=== PATIENT | male | born 1935 | race Caucasian/White ===

== ENCOUNTER 2016-12-11 09:31 | Emergency (ER) | payer BC, MEDICARE ==
[~2016-12-11] VITALS: Ht 177.8 cm; Wt 98.2 kg
[2016-12-11 09:33] VITALS: BP 175/84; PULSE 78; RESP 15; TEMP 98; O2SAT 98
[2016-12-11 09:45] VITALS: BP 157/77; PULSE 61; RESP 16; TEMP 97.5; O2SAT 95
[2016-12-11] MEDS ORDERED: LIDOCAINE 1%/EPINEPHrine 1:100,000 SOLN 20 ML VIAL INFIL ONE (10:00)
[2016-12-11] MEDS ORDERED: NAPR220T95 PO (10:04)
[2016-12-11] MEDS ORDERED: HYDR25TA5 PO (10:04)
[2016-12-11] MEDS ORDERED: WARF-21 PO (10:04)
[2016-12-11] MEDS ORDERED: PANT40TA3 PO (10:04)
[2016-12-11] MEDS ORDERED: METO25TA6 PO (10:04)
[2016-12-11] MEDS ORDERED: AMLO5CAP3 PO (10:04)
[2016-12-11] MEDS ORDERED: WARF-23 PO (10:04)
[2016-12-11] MEDS ORDERED: FLEC1TAB8 PO (10:04)
--- NOTE | 2016-12-11 10:18 | PD ---
HPI . Facial laceration Chief Complaint: Fall Time Seen by Provider: 09:45 Travel History International Travel<30 days: No Contact w/Intl Traveler<30days: No Traveled to known affect area: No History of Present Illness HPI This patient tripped and fell suffering a laceration on the right side of the face and abrasions on the right forearm and right knee. He presents stating that he feels like he needs some stitches in the facial laceration. He states that he does not hurt. He denies any loss of consciousness. He denies blurred vision. He denies neck pain. He is on Coumadin. PFSH Past Medical History Hx Anticoagulant Therapy: Yes (WARFARIN ) Atrial Fibrillation: Yes (CARDIOVERSION ) Cardiac Catheterization: Yes Cardiovascular Problems: Yes (A-FIB, HTN) Hypertension: Yes Integumentary: Yes (BASAL CELL CARCINOMA REMOVED) Tetanus Vaccination: < 5 Years Influenza Vaccination: Yes Past Surgical History Eye Surgery: Yes (CATARACT SURGERY) Genitourinary Surgery: Yes (VASECTOMY) Other Surgery: Yes (BASAL CELL CARCINOMA REMOVED ) Social History Alcohol Use: Yes (DAILY ) Tobacco Use: No (QUIT 50 YEARS AGO ) Substance Use: No Allergies-Medications (Allergen,Severity, Reaction): Coded Allergies: No Known Allergies (Verified , 12/11/16) Reported Meds & Prescriptions Reported Meds & Active Scripts Active Reported Flecainide (Flecainide Acetate) 50 Mg Tab 50 Mg PO BID Warfarin 7.5 Mg Tab 7.5 Mg PO DAILY Warfarin 5 Mg Tab 5 Mg PO DAILY Aleve (Naproxen Sodium) 220 Mg Tab 220 Mg PO BID PRN Pantoprazole (Pantoprazole Sodium) 40 Mg Tab 40 Mg PO DAILY Hydrochlorothiazide 25 Mg Tab 0.5 Tab PO DAILY Amlodipine-Benazepril 5-20 Mg Cap 1 Cap PO DAILY Metoprolol Succinate ER 24 HR (Metoprolol Succinate) 25 Mg Tab 12.5 Mg PO DAILY Review of Systems Except as stated in HPI: all other systems reviewed are Neg Eyes: No: Diploplia, Blurred Vision HENT: No: Headaches Cardiovascular: No: Chest Pain or Discomfort Respiratory: No: Shortness of Breath Gastrointestinal: No: Nausea, Vomiting, Diarrhea Musculoskeletal: No: Myalgias, Arthralgias Skin: Positive Other (abrasions and laceration) Neurologic: No: Dizziness, Syncope Physical Exam Narrative GENERAL: Patient presents as ambulatory in no acute distress. SKIN: Warm and dry. Jagged 2 cm laceration to the right of the right eye. Abrasions on the right forearm and the right knee. HEAD: Normocephalic. Except for the facial laceration, no other injuries to the head. EYES: Pupils equal and round. Extraocular movements are intact. ENT: No nasal bleeding or discharge. Mucous membranes pink and moist. NECK: Trachea midline. Neck is nontender with full range of motion. CARDIOVASCULAR: Regular rate and rhythm. Heart sounds are normal. RESPIRATORY: No accessory muscle use. Lungs are clear with full air movement throughout. GASTROINTESTINAL: Abdomen soft, non-tender, nondistended. MUSCULOSKELETAL: No obvious deformities. No edema. He is able to move all 4 extremities equally. NEUROLOGICAL: Awake and alert. No obvious cranial nerve deficits. Motor grossly within normal limits. Normal speech. PSYCHIATRIC: Appropriate mood and affect; insight and judgment normal. Data Data Last Documented VS Vital Signs Date Time Temp Pulse Resp B/P Pulse Ox O2 Delivery O2 Flow Rate FiO2 12/11/16 09:45 62 16 95 Room Air 12/11/16 09:45 97.5 157/77 Orders Lidocai-Epi 1%-1:100,000 Inj (Xylocaine- (12/11/16 10:00) MDM Medical Decision Making Medical Screen Exam Complete: Yes Emergency Medical Condition: Yes Differential Diagnosis Differential diagnosis includes but is not limited to skin laceration, muscular laceration, tendon laceration, neurovascular laceration. Narrative Course Patient presents for treatment of skin injuries sustained in a trip and fall. He reports no pain. He reports no difficulty using his extremities. He reports no loss of consciousness or symptoms of head injury. Procedures Procedure Narrative LACERATION LOCATION: Right facial near the right eye LENGTH: 2 cm NUMBER OF STITCHES/EDDIE: 4, 6-0 Prolene REPAIR: The area of the laceration was prepped with Betadine and sterilely draped. The laceration was infiltrated with 4 cc of 1% lidocaine with epi. No evidence of foreign body, or deep structure injury. The wound was closed using 6-0 Prolene. This was a single layer repair. Patient tolerated the procedure well. Diagnosis Primary Impression: Facial laceration Qualified Code: S01.81XA - Facial laceration, initial encounter Additional Impression: Abrasions of multiple sites Patient Instructions: Abrasion (ED), Facial Laceration (ED), General Instructions Additional Instructions: Clean the wound twice daily with soap and water. Apply a thin layer of Neosporin ointment after you wash it. See your doctor in 5 days for suture removal. Seek care sooner for redness, drainage, warmth, unusual pain. Disposition: 01 DISCHARGE HOME Condition: Stable Nida Lozano MD Dec 11, 2016 10:18
[2016-12-11] MEDS ORDERED: NEOMYCIN/POLYMYXIN/BACITRACIN OINT 15 GM TUBE TOPICAL ONE (11:15)
== END 2016-12-11 12:21 | disposition home or self-care (01) ==
LOC: NEPA 09:31
DX: S01.81XA Laceration without foreign body of other part of head, initial encounter (principal); S50.811A Abrasion of right forearm, initial encounter; S80.211A Abrasion, right knee, initial encounter; I48.91 Unspecified atrial fibrillation; I10 Essential (primary) hypertension; W01.0XXA Fall on same level from slipping, tripping and stumbling without subsequent striking against object, initial encounter; Y93.9 Activity, unspecified; Y92.9 Unspecified place or not applicable
CPT/HCPCS: 12011

== ENCOUNTER 2016-12-16 09:23 | Emergency (ER) | payer BC, MEDICARE ==
[~2016-12-16] VITALS: Ht 177.8 cm; Wt 97.0 kg
[~2016-12-16 09:23] MED LIST: AMLO5CAP3 PO; FLEC1TAB8 PO; HYDR25TA5 PO; METO25TA6 PO; NAPR220T95 PO; PANT40TA3 PO; WARF-21 PO; WARF-23 PO
[2016-12-16 09:24] VITALS: BP 155/72; PULSE 51; RESP 14; TEMP 98.1; O2SAT 95
--- NOTE | 2016-12-16 09:58 | PD ---
HPI Chief Complaint: Wound/Suture/Staple Re-Check Time Seen by Provider: 09:56 Travel History International Travel<30 days: No Contact w/Intl Traveler<30days: No Traveled to known affect area: No History of Present Illness HPI 81-year-old male presents to the emergency department for suture removal. Patient had 4 sutures placed 5 days ago to the right eyebrow area. He denies any complaints. No drainage. No redness. He has been doing proper wound care. Patient denies any new or recent injury. No other complaints. PFSH Past Medical History Hx Anticoagulant Therapy: Yes Atrial Fibrillation: Yes (CARDIOVERSION ) Cardiac Catheterization: Yes Cardiovascular Problems: Yes (afib) Hypertension: Yes Integumentary: Yes (BASAL CELL CARCINOMA REMOVED) Past Surgical History Eye Surgery: Yes (CATARACT SURGERY) Genitourinary Surgery: Yes (VASECTOMY) Other Surgery: Yes (BASAL CELL CARCINOMA REMOVED ) Social History Alcohol Use: Yes (DAILY ) Tobacco Use: No (QUIT 50 YEARS AGO ) Substance Use: No Allergies-Medications (Allergen,Severity, Reaction): Coded Allergies: No Known Allergies (Verified , 12/16/16) Reported Meds & Prescriptions Reported Meds & Active Scripts Active Reported Flecainide (Flecainide Acetate) 50 Mg Tab 50 Mg PO BID Warfarin 7.5 Mg Tab 7.5 Mg PO DAILY Warfarin 5 Mg Tab 5 Mg PO DAILY Aleve (Naproxen Sodium) 220 Mg Tab 220 Mg PO BID PRN Pantoprazole (Pantoprazole Sodium) 40 Mg Tab 40 Mg PO DAILY Hydrochlorothiazide 25 Mg Tab 0.5 Tab PO DAILY Amlodipine-Benazepril 5-20 Mg Cap 1 Cap PO DAILY Metoprolol Succinate ER 24 HR (Metoprolol Succinate) 25 Mg Tab 12.5 Mg PO DAILY Review of Systems Except as stated in HPI: all other systems reviewed are Neg Physical Exam Narrative GENERAL: Well-developed well-nourished elderly male patient, ambulatory. Afebrile. SKIN: Warm and dry. Patient has a well healing 2 cm laceration to the right eyebrow without drainage or erythema. [address] HEAD: Normocephalic. EYES: No scleral icterus. No injection or drainage. RESPIRATORY: No accessory muscle use. MUSCULOSKELETAL: No cyanosis, or edema. Data Data Last Documented VS Vital Signs Date Time Temp Pulse Resp B/P Pulse Ox O2 Delivery O2 Flow Rate FiO2 12/16/16 09:24 98.1 51 14 155/72 95 MDM Medical Decision Making Medical Screen Exam Complete: Yes Emergency Medical Condition: Yes Medical Record Reviewed: Yes Differential Diagnosis Stitches removal versus dehiscence versus cellulitis Narrative Course 81-year-old male presents to the emergency department for suture removal. He denies any other complaints. Physical exam reveals a well healing 2 cm laceration with [address] The sutures are removed without difficulty. Patient is instructed on proper wound care. He is return for any acute worsening of symptoms. He verbalizes agreement and understanding. The patient was discharged in stable condition with instructions, including return instructions and follow up instructions. Diagnosis Primary Impression: Visit for suture removal Referrals: Primary Care Physician as needed Patient Instructions: General Instructions, Stitches Removal (ED) Additional Instructions: Clean gently twice daily with soap and water and apply [id number] antibiotic ointment. Follow-up with your primary care physician as needed. Return to the emergency department for any acute worsening of symptoms. Med/Other Pt SpecificInfo: No Change to Meds Disposition: 01 DISCHARGE HOME Condition: Stable Dilan Cardenasyashira GILLIAM Dec 16, 2016 09:58
== END 2016-12-16 10:12 | disposition home or self-care (01) ==
LOC: NED 09:23 → NEPB 10:12
DX: Z48.02 Encounter for removal of sutures (principal)
CPT/HCPCS: 99281